=== PATIENT | female | born 1945 | race Caucasian/White ===

== ENCOUNTER 2017-11-10 12:40 | Observation (INO) | payer MEDICARE ==
[~2017-11-10] VITALS: Ht 157.5 cm; Wt 79.3 kg
[~2017-11-10 12:40] MED LIST: CHOL500050 PO; CYAN100028 IM; ESTR0.3T PO; FESO8TAB PO; SERT100T PO; TOLT4CAP PO
[2017-11-10] MEDS ORDERED: ASPIRIN 81 MG TABLET CHEW PO ONE (13:30)
[2017-11-10] MEDS ORDERED: ASPIRIN 81 MG TABLET CHEW ONE (13:31)
[2017-11-10 13:45] LABS: BASOPHILS # (AUTO) 0.04 x10^3/uL (0-0.1); BASOPHILS % (AUTO) 1 % (0-1); EOSINOPHILS # (AUTO) 0.18 x10^3/uL (0-0.4); EOSINOPHILS % (AUTO) 2 % (1-7); LYMPHOCYTES # (AUTO) 2.54 x10^3/uL (1-3.4); LYMPHOCYTES % (AUTO) 32 % (22-44); MD NO; MEAN CORPUSCULAR HEMOGLOBIN 27.6 pg (27.0-34.8); MEAN CORPUSCULAR HGB CONC 33.1 g/dL (32.4-35.8); MEAN CORPUSCULAR VOLUME 83.3 fL (80-100); MEAN PLATELET VOLUME 9.1 fL (7.4-10.4); MONOCYTES # (AUTO) 0.53 x10^3/uL (0.2-0.8); MONOCYTES % (AUTO) 7 % (2-9); NEUTROPHILS # (AUTO) 4.57 x10^3/uL (1.8-6.8); NEUTROPHILS % (AUTO) 58 % (42-75); PLATELET COUNT 279 x10^3/uL (130-400); RED BLOOD COUNT 4.44 x10^6/uL (3.82-5.3); RED CELL DISTRIBUTION WIDTH 14.6 % (9.6-15.2)
[2017-11-10] MEDS ORDERED: [UNRECOGNIZED DRUG - OTHER] (13:49)
[2017-11-10] MEDS ORDERED: OMEG-14 PO (13:49)
[2017-11-10] MEDS ORDERED: MULT-6 PO (13:49)
[2017-11-10] MEDS ORDERED: GLUC1CAP18 PO (13:49)
[2017-11-10] MEDS ORDERED: IRON PO (13:49)
[2017-11-10] MEDS ORDERED: CHOL200085 PO (13:49)
[2017-11-10 13:54] LABS: ALBUMIN 3.2 g/dL (3.4-5.0); ANION GAP 9 mmol/L (5-15); CHLORIDE 107 mmol/L (98-107); CREATININE 0.72 mg/dL (0.55-1.02)
[2017-11-10 13:59] LABS: TROPONIN I < 0.015 ng/mL (0.000-0.045)
[2017-11-10] MEDS ORDERED: ONDANSETRON 2MG/ML, 2ML IVPush PRN (16:30)
[2017-11-10] MEDS ORDERED: ENALAPRILAT 1.25 MG/ML, 2ML IVPush PRN (16:30)
[2017-11-10] MEDS ORDERED: NITROGLYCERIN 0.4 MG BOTTLE (25 TABS) SL PRN (16:30)
[2017-11-10] MEDS ORDERED: KETOROLAC 30 MG/1 ML IV PRN (16:30)
[2017-11-10] MEDS ORDERED: ENOXAPARIN 40 MG/0.4 ML SQ SCH (16:30)
[2017-11-10] MEDS ORDERED: ACETAMINOPHEN 325 MG TABLET PO PRN (16:30)
[2017-11-10] MEDS ORDERED: morphine SULFATE 10 MG/ML, 1ML IVPush PRN (16:30)
[2017-11-10 18:21] VITALS: BP 145/74
[2017-11-10 19:26] LABS: TROPONIN I < 0.015 ng/mL (0.000-0.045)
[2017-11-10 19:58] VITALS: BP 120/67
[2017-11-10] MEDS: SODIUM CHLORIDE FLUSH 10ML SYR IVF SCH (21:04)
[2017-11-11 01:30] LABS: TROPONIN I < 0.015 ng/mL (0.000-0.045)
[2017-11-11 01:35] LABS: CHOL/HDL RATIO 3.6; LDL/HDL RATIO 2.1 (0.5-3.0); THYROID STIMULATING HORMONE 2.26 mIU/L (0.358-3.740)
[2017-11-11 02:56] VITALS: BP 124/67
[2017-11-11] MEDS ORDERED: ASPIRIN 325 MG TABLET EC PO SCH (06:00)
[2017-11-11 08:16] VITALS: BP 128/78
[2017-11-11] MEDS ORDERED: CHOLECALCIFEROL 5,000u TAB PO SCH (09:00)
[2017-11-11] MEDS: SODIUM CHLORIDE FLUSH 10ML SYR IVF SCH (09:00)
[2017-11-11] MEDS ORDERED: REGADENOSON 0.4 MG/5 ML SYRINGE ONE (10:39)
[2017-11-11 19:57] LABS: HEMOGLOBIN A1C 6.9 % (4.2-6.3)
== END 2017-11-11 15:10 | disposition home or self-care (01) ==
LOC: ED 14:48 → EDIP 16:12 → 5SO 18:22
PROVIDERS: ADMIT Internal Medicine; ATTEND Internal Medicine
DX: R07.9 Chest pain, unspecified (principal); R73.9 Hyperglycemia, unspecified; E44.1 Mild protein-calorie malnutrition; Z79.82 Long term (current) use of aspirin; Z83.3 Family history of diabetes mellitus; Z90.710 Acquired absence of both cervix and uterus
CPT/HCPCS: 36415; 71045; 78452; 80048; 80061; 82040; 83036; 84443; 84484; 85025; 85379; 93005; 93017; 93306; 96372; 99285; A9502; C9898; G0378; J1650; J2785